=== PATIENT | male | born 1950 | race Caucasian/White ===

== ENCOUNTER 2017-01-31 21:55 | Emergency (ER) | payer SELFPAY ==
[~2017-01-31] VITALS: Ht 175.3 cm; Wt 72.0 kg
[2017-01-31 22:42] LABS: HEMATOCRIT 41.5 % (38.0-50.0); MCHC 34.2 G/DL (30.0-36.0); MCV 87.7 FL (86-99); MEAN PLAT.VOLUME 9.5 uM^3 (9.0-12.4); PLATELET COUNT 236 K/uL (156-360); RBC DIS.WIDTH-SD 38.5 % (39-53); RED BLOOD COUNT 4.73 M/uL (4.00-5.50); WHITE BLOOD COUNT 10.3 K/uL (4.1-10.2)
[2017-01-31 22:51] LABS: CHLORIDE 106 mEq/L (99-109); POTASSIUM 3.7 mEq/L (3.7-5.4); SODIUM 142 mEq/L (136-147)
[2017-01-31 22:53] LABS: GLUCOSE 116 mg/dL (70-99)
[2017-01-31 22:54] LABS: ANION GAP 9 MEQ/L (2-14)
[2017-01-31 22:58] LABS: UREA NITROGEN (BUN) 15 mg/dL (9-23)
[2017-01-31 23:02] LABS: GFR ESTIMATE (CALCULATED) > 59 mL/min/
[2017-01-31 23:03] LABS: TROP-I INTERPRETATION NEGATIVE; TROPONIN-I < 0.01 ng/mL (0.0-0.30)
[2017-02-01 00:41] LABS: TROP-I INTERPRETATION NEGATIVE; TROPONIN-I < 0.01 ng/mL (0.0-0.30)
[2017-02-01] MEDS ORDERED: EPIPEN ADU0.3 MG/0.3 IM (00:49)
[2017-02-01 01:41] VITALS: BP 103/71
== END 2017-02-01 01:44 | disposition home or self-care (01) ==
LOC: EDBD 21:55 → EME 21:55
PROVIDERS: Emergency Medicine
DX: T63.481A Toxic effect of venom of other arthropod, accidental (unintentional), initial encounter (principal); R07.89 Other chest pain
CPT/HCPCS: 80048; 84484; 85027; 93005; 99281; 99285; J2930; J7030